=== PATIENT | female | born 1985 | race Caucasian/White ===

== ENCOUNTER 2022-03-23 10:23 | Day surgery (SDC) | payer BC ==
[2022-03-18 14:12] LABS: Absolute Lymphocytes (CBC) 3.6 K/uL (0.7-4.9); Hematocrit 40.8 % (36.0-45.0); Lymphocytes % 38.7 % (15.3-44.8); MCV 86.7 fL (80-100); MPV 7.2 fL (7.6-11.3); RBC Red Blood Cell Count 4.71 M/uL (3.86-4.86)
[2022-03-18 14:19] LABS: Urine Bacteria None Seen /HPF (<20); Urine Granular Casts 0-5 /LPF (None Seen); Urine Mucus 1+ /HPF (None Seen); Urine RBC <5 /HPF (None Seen)
[2022-03-18 14:20] LABS: Urine Bilirubin Negative (Negative); Urine Blood Negative (Negative); Urine Clarity Clear (Clear); Urine Color Yellow (Yellow); Urine Glucose Negative (Negative)
[2022-03-18 14:21] LABS: Urine Ascorbic Acid Negative (Negative); Urine Protein Negative (Negative); Urine Urobilinogen 0.2 (Normal)
[2022-03-18 14:26] LABS: Potassium 3.9 mmol/L (3.5-5.1)
[2022-03-18 16:31] LABS: Protime INR 1.09
[2022-03-23] MEDS ORDERED: SCOPOLAMINE HYDROBROMIDE PATCH TD ONE (10:50)
[2022-03-23] MEDS ORDERED: Ringers Lactate 1,000 ML IV ONE ×3 (10:50→16:41)
[2022-03-23 12:05] LABS: SARS-CoV-2 Antigen Rapid Res Negative (Negative)
[2022-03-23] MEDS: CEFAZOLIN 3 GM in NA CHLORIDE 0.9% 100 ML IVPB SCH ×2 (13:54→14:56)
[2022-03-23] MEDS ORDERED: FENTANYL CITR 100 MCG/2 ML ONE (14:45)
[2022-03-23] MEDS ORDERED: ROCURONIUM 50 MG/5 ML VIAL IV ONE ×2 (14:45→16:35)
[2022-03-23] MEDS ORDERED: LIDOCAINE 2% MPF 5 ML VIAL ONE (14:45)
[2022-03-23] MEDS ORDERED: propofoL 200 MG/20 ML VIAL IV ONE (14:45)
[2022-03-23] MEDS ORDERED: dexAMETHasone 10 MG/ML VIAL ONE (14:45)
[2022-03-23] MEDS ORDERED: CEFAZOLIN SODIUM 1 GM/VIAL ONE (14:46)
[2022-03-23] MEDS ORDERED: NA CHLORIDE 0.9% 100 ML ONE (14:46)
[2022-03-23] MEDS ORDERED: NS 0.9% VIAL 0 ML ONE (14:46)
[2022-03-23] MEDS ORDERED: KETOROLAC 30 MG/ML INJ ONE (14:46)
[2022-03-23] MEDS ORDERED: MIDAZOLAM HCL 2 MG/2 ML INJ ONE (14:46)
[2022-03-23] MEDS ORDERED: ONDANSETRON 4 MG/2 ML VIAL ONE (14:48)
[2022-03-23] MEDS ORDERED: VASOPRESSIN 20 UNIT/ML VIAL ONE (15:27)
[2022-03-23] MEDS ORDERED: NA CHLORIDE 0.9% 1,000 ML ONE (15:28)
[2022-03-23] MEDS: VASOPRESSIN 20 UNIT/ML VIAL ONE ×3 (16:10→17:05)
[2022-03-23] MEDS ORDERED: GLYCOPYRROLATE 0.2 MG/ML SYR ONE (17:05)
[2022-03-23] MEDS ORDERED: NEOSTIGMINE 1 MG/ML -5 ML ONE (17:06)
[2022-03-23 18:56] VITALS: TEMP 97.3; O2SAT 100
[2022-03-23 19:41] VITALS: BP 139/78
[2022-03-23] MEDS ORDERED: HYDROCODONE/APAP 5/325 MG TAB ONE (20:28)
== END 2022-03-23 21:53 | disposition home or self-care (01) ==
LOC: OR 10:23
PROVIDERS: ATTEND Obstetrics & Gynecology
PROC: 0JQC0ZZ Repair Pelvic Region Subcutaneous Tissue and Fascia, Open Approach (ICD-10-PCS; 2022-03-23)
PROC: 0TSD0ZZ Reposition Urethra, Open Approach (ICD-10-PCS; 2022-03-23)
PROC: 0UT74ZZ Resection of Bilateral Fallopian Tubes, Percutaneous Endoscopic Approach (ICD-10-PCS; principal; 2022-03-23 11:30)
DX: N81.2 Incomplete uterovaginal prolapse (principal); N81.6 Rectocele; N39.3 Stress incontinence (female) (male); I10 Essential (primary) hypertension; F17.208 Nicotine dependence, unspecified, with other nicotine-induced disorders; N73.6 Female pelvic peritoneal adhesions (postinfective)
CPT/HCPCS: 58661; 57250; 57288; 85025; 81001; 80048; 36415 ×2; 86900; 86850; 81025; 85610; 86901; 88305; 85730; 87811; J2704; J2001; J2250; J3010; J1100; J2710; J7120 ×3; J7030; J2405; J0690 ×2; A4216